=== PATIENT | male | born 1965 | race Caucasian/White ===

== ENCOUNTER → 2018-04-24 | Outpatient (CLI) | payer BC ==
[~2018-04-24] MED LIST: CLON.5 PO; LEVSOD50 PO; LISI20 PO; MULVITMIND PO; OMEP20ER PO; OXYACE7.5T PO; PROM25 PO; ROSU10TA PO; Testostero100 MG/1 M INJ; VERAPAMIL PO
== END | disposition home or self-care (01) ==
LOC: LAB SHORT 12:26 → LAB EV 12:26
DX: B00.9 Herpesviral infection, unspecified (principal)
CPT/HCPCS: 87529

== ENCOUNTER 2021-05-16 12:14 | Day surgery (SDC) | payer OTHER ==
[~2021-05-16] VITALS: Ht 177.8 cm; Wt 117.4 kg
[~2021-05-16 12:14] MED LIST changes: +AMLO10 PO; +DEPO-TESTO200 MG/1 M; +GLUCOPHAGE1000 M1 PO; +TAMS.4ER PO; +THYR60 PO; +VALA500 PO; +Verapamil ER300 MG PO
== END 2021-05-16 14:11 | disposition home or self-care (01) ==
LOC: ORSCSDS 12:14
PROVIDERS: Internal Medicine Gastroenterology
PROC: 0DBN8ZX Excision of Sigmoid Colon, Via Natural or Artificial Opening Endoscopic, Diagnostic (ICD-10-PCS; principal; 2021-05-16 13:30)
PROC: 0DBL8ZX Excision of Transverse Colon, Via Natural or Artificial Opening Endoscopic, Diagnostic (ICD-10-PCS; principal; 2021-05-16 13:30)
DX: Z12.11 Encounter for screening for malignant neoplasm of colon (principal); D12.3 Benign neoplasm of transverse colon; D12.5 Benign neoplasm of sigmoid colon; E11.9 Type 2 diabetes mellitus without complications; I10 Essential (primary) hypertension; K64.8 Other hemorrhoids; E03.9 Hypothyroidism, unspecified; E66.9 Obesity, unspecified; Z68.38 Body mass index [BMI] 38.0-38.9, adult; G47.30 Sleep apnea, unspecified; Z79.899 Other long term (current) drug therapy
CPT/HCPCS: 82947; 88305; J0330; J0461; J2405; J2704; J7120

== ENCOUNTER → 2023-07-13 | Outpatient (CLI) | payer BC | LOC: LAB 15:32 → LAB SHORT 15:32 | DX: L72.0 Epidermal cyst (principal) | CPT/HCPCS: 87070; 87205 ==

== ENCOUNTER 2023-10-24 16:37 | Inpatient (IN) | payer BC ==
[2023-10-24] VITALS (11 sets, daily range): BP systolic 122–146; BP diastolic 85–100
[~2023-10-24] VITALS: Ht 177.8 cm; Wt 120.5 kg
[~2023-10-24 16:37] MED LIST changes: +Prinivil10 MG PO
[2023-10-24 17:08] LABS: BASOPHILS ABSOLUTE AUTO 0.09 K/mm3 (0.00-0.23); BASOPHILS PERCENT AUTO 1 % (0-2); EOSINOPHILS ABSOLUTE AUTO 0.22 K/mm3 (0.00-0.68); EOSINOPHILS PERCENT AUTO 2 % (0-6); Hematocrit 54.5 % (37.0-53.0); Hemoglobin 18.4 g/dL (13.5-17.5); IMMATURE GRAN ABSOLUTE AUTO 0.03 K/mm3 (0.00-0.10); IMMATURE GRAN PERCENT AUTO 0 % (0-1); LYMPHOCYTES ABSOLUTE AUTO 2.29 K/mm3 (0.84-5.20); LYMPHOCYTES PERCENT AUTO 18 % (21-46); MONOCYTES ABSOLUTE AUTO 1.19 K/mm3 (0.16-1.47); MONOCYTES PERCENT AUTO 10 % (4-13); Mean Corpuscular HGB 30.7 pg (26.0-34.0); Mean Corpuscular HGB Conc 33.8 g/dL (31.5-36.5); Mean Corpuscular Volume 91 fL (80-100); NEUTROPHILS PERCENT AUTO 70 % (41-73); Platelet Count 231 K/mm3 (150-400); RDW Coefficient Variation 14.3 % (11.7-14.2); RDW Standard Deviation 48.1 fL (35.1-46.3); White Blood Cell Count 12.52 K/mm3 (4.00-11.30)
[2023-10-24 17:25] LABS: Calcium, Ionized (POC) 1.13 mmol/L (1.10-1.46); Chloride (POC) 101 mmol/L (98-108); Creatinine (POC) 1.3 mg/dL (0.8-1.3); Glucose (ISTAT POC) 203 mg/dL (70-99); Hemoglobin (POC) 18.7 g/dL (13.5-17.5); Potassium (POC) 3.9 mmol/L (3.5-5.5); Sodium (POC) 138 mmol/L (135-148); Total CO2 (POC) 26 mmol/L (21-32)
[2023-10-24 17:26] LABS: International Normalized Ratio 1.1; Prothrombin Time Results 11.5 Sec (9.7-11.5)
[2023-10-24 17:56] LABS: Albumin, Blood 3.8 g/dL (3.4-5.0); Bilirubin, Total 0.7 mg/dL (0.1-1.0); Bun/Creatinine Ratio 13.3 (12.0-20.0); Calcium, Blood 9.2 mg/dL (8.5-10.1); Creatinine, Blood 1.28 mg/dL (0.60-1.20); Globulin, Blood 3.7 g/dL (2.2-4.0); Potassium, Blood 4.1 mmol/L (3.5-5.5); Total Protein, Blood 7.5 g/dL (6.4-8.2)
[2023-10-24 18:14] LABS: CHOL/HDL RATIO 7.6; Cholesterol 204 mg/dL (50-200); HDL Cholesterol 27 mg/dL (>39); LDL/HDL RATIO 4.6; Low Density Lipoprotein Chol 125 mg/dL (0-110); Magnesium, Blood 1.9 mg/dL (1.6-2.4); Triglycerides 258 mg/dL (30-160); Very Low Density Lipoprot Chol 51 mg/dL (6-32)
[2023-10-24] MEDS ORDERED: OMEP20ER PO (18:26)
[2023-10-24] MEDS ORDERED: VITAMIN D350 MC3 PO (18:27)
[2023-10-24] MEDS ORDERED: MULTI-VITAMIN1 EAC2 PO (18:27)
--- NOTE | 2023-10-24 18:39 | NUR ---
PT ADMITTED TO ICU FROM CATH S/P CORONARY ANGIOGRAM WITH STENT PLACED TO DISTAL RCA. PT ARRIVED AWAKE AND ALERT. C/O DISCOMFORT 3/10 TO LEFT SHOULDER, THIS PAIN WAS PRESENT PRIOR TO SHIP ERECTOR. PT ALSO C/O MILD NAUSEA. LUNGS CLEAR. BP STABLE. SR IN 80'S W ST ELEVATION. FAMILY AT BEDSIDE, PT CALM AND VISITING W FAMILY IN NO APPARENT DISTRESS. TR BAND TO RIGHT ART W 10CC AIR TO BALLOON. CIRC CHECK WNL. HAND PINK AND WARM W GOOD CAP REFILL, ART PULSE PRESENT BELOW AND ABOVE TR BAND. PT DENIES C/O PAIN OR NUMBNESS TO HAND.
--- NOTE | 2023-10-24 20:08 | NUR ---
ASSUMPTION OF CARE ASSUMED CARE OF PATIENT AT 1900. PATIENT ALERT, ORIENTED x4, ANSWERING ALL QUESTIONS APPROPRIATELY. FAMILY AT THE BEDSIDE WITH PATIENT. ON ASSEMBLY MACHINE SET UP MECHANIC, SINUS RHYTHM 80s, REPORTING MILD CHEST AND LEFT SHOULDER PAIN BUT REPORTS IT IS MUCH BETTER THAN BEFORE ANGIOGRAM. TR BAND IN PLACE, DEFLATING PER ORDER. USING URINAL WITH ASSISTANCE. DENIES NEEDS AT THIS TIME, BED IN LOW POSITION, CALL LIGHT IN REACH.
[2023-10-25] VITALS (18 sets, daily range): BP systolic 106–139; BP diastolic 78–99
--- NOTE | 2023-10-25 | NUR ---
UPDATE TR BAND FULLY RECOVERED. OPSITE PLACED TO RIGHT RADIAL SITE. RIGHT RADIAL SITE IS FIRM TO TOUCH BUT NONTENDER, MINIMAL SWELLING, NO BRUISING OR SIGN OF HEMATOMA NOTED. ARM BOARD IN PLACE. PATIENT REPORTING MILD CHEST PRESSURE, BUT DECLINING MEDICATIONS FOR PAIN MANAGEMENT. USING URINAL INDEPENDENTLY WITH ADEQUATE OUTPUT. DENIES OTHER NEEDS AT THIS TIME.
[2023-10-25 03:30] LABS: BASOPHILS ABSOLUTE AUTO 0.04 K/mm3 (0.00-0.23); BASOPHILS PERCENT AUTO 0 % (0-2); EOSINOPHILS ABSOLUTE AUTO 0.03 K/mm3 (0.00-0.68); EOSINOPHILS PERCENT AUTO 0 % (0-6); Hematocrit 54.8 % (37.0-53.0); Hemoglobin 18.4 g/dL (13.5-17.5); IMMATURE GRAN ABSOLUTE AUTO 0.04 K/mm3 (0.00-0.10); IMMATURE GRAN PERCENT AUTO 0 % (0-1); LYMPHOCYTES ABSOLUTE AUTO 0.87 K/mm3 (0.84-5.20); LYMPHOCYTES PERCENT AUTO 7 % (21-46); MONOCYTES ABSOLUTE AUTO 1.05 K/mm3 (0.16-1.47); MONOCYTES PERCENT AUTO 8 % (4-13); Mean Corpuscular HGB 31.1 pg (26.0-34.0); Mean Corpuscular HGB Conc 33.6 g/dL (31.5-36.5); Mean Corpuscular Volume 93 fL (80-100); Mean Platelet Volume 9.9 fL (9.1-12.4); NEUTROPHILS PERCENT AUTO 85 % (41-73); Platelet Count 228 K/mm3 (150-400); RDW Coefficient Variation 14.5 % (11.7-14.2); RDW Standard Deviation 50.2 fL (35.1-46.3); Red Blood Cell Count 5.91 M/mm3 (4.30-5.90); White Blood Cell Count 13.33 K/mm3 (4.00-11.30)
[2023-10-25 04:03] LABS: Albumin, Blood 3.6 g/dL (3.4-5.0); Albumin/Globulin Ratio 0.9 (0.8-1.8); Bilirubin, Total 0.7 mg/dL (0.1-1.0); Bun/Creatinine Ratio 13.2 (12.0-20.0); Calcium, Blood 8.9 mg/dL (8.5-10.1); Creatinine, Blood 1.21 mg/dL (0.60-1.20); Globulin, Blood 3.9 g/dL (2.2-4.0); Magnesium, Blood 2.2 mg/dL (1.6-2.4); Potassium, Blood 5.1 mmol/L (3.5-5.5); Thyroid Stimulating Hormone 0.683 uIU/mL (0.360-4.800); Total Protein, Blood 7.5 g/dL (6.4-8.2)
--- NOTE | 2023-10-25 06:20 | NUR ---
SHIFT SUMMARY PATIENT ALERT AND ORIENTED x4. SINUS RHYTHM WITH ST ELEVATION ON MONITOR, BP STABLE. PATIENT REPORTING MILD CHEST PAIN DURING THE NIGHT, MEDICATED x1. TR BAND OFF SINCE 0000. RIGHT RADIAL SITE COVERED WITH OPSITE TEGADERM, MILD SWELLING NOTED, NO SIGN OF HEMATOMA/BRUISING, SITE CONTINUES TO BE NONTENDER, CAP REFILL <3 SECONDS. PATIENT ON RA DURING THE NIGHT WITH SPO2 >95%. PATIENT USING URINAL WITH ADEQUATE OUTPUT DURING THE NIGHT. NO OTHER CHANGES, WILL REPORT TO DAY SHIFT RN.
--- NOTE | 2023-10-25 07:00 | NUR ---
ASSUMPTION OF CARE BEDSIDE REPORT RECEIVED AND R RADIAL SITE VISUALIZED. ARMBOARD IN PLACE, CLEAR TEGADERM C/D/I. NO SWELLING OR DISCOLORATION. PT IS ALERT AND ORIENTED. HE IS ON RA WITH SPO2 >95%. SINUS ON MONITOR WITH OCCASIONAL PVCS, RATE IN 50S-60S. SBP 130S. HE REPORTS CHEST DISCOMFORT WITH DEEP BREATHING BUT OTHERWISE DENIES SYMPTOMS. AT BEDSIDE. MANAGER INSPECTION AT BEDSIDE.
--- NOTE | 2023-10-25 08:30 | NUR ---
UPDATE HOSPITALIST AND PROFESSOR OF ENGINEERING ROUNDED. PLAN FOR PT TO DOWNGRADE TO PCU STATUS AND MONITOR UNTIL TOMORROW.
--- NOTE | 2023-10-25 09:45 | NUR ---
TRANSFER PT TRANSFERRED TO PCU 14 AT THIS TIME. PT TRANSFERRED SELF TO WHEELCHAIR, THEN TO BED IN NEW ROOM. PT DENIES CP. VSS AT THIS TIME. RECEIVING RN AT BEDSIDE AND VISUALIZED R RADIAL ACCESS SITE.
--- NOTE | 2023-10-25 13:54 | NUR ---
CARE ASSUMPTION PT ARRIVED TO PCU FROM ICU VIA WHEELCHAIR AT APPROX 0930. PT AMBULATED INDEPENDENTLY FROM WHEELCHAIR TO PCU BED. PT ACCOMPANIED BY . PT A&OX4, VSS. SP02>90% ON RA. TELEMETRY SHOWS SINUS KONRAD/NSR, HR 50'S-60'S PT HAS R RADIAL SITE, RECOVERED, ARM BOARD IN PLACE. NO SIGNS OF BLEEDING, BRUISING, HEMATOMA. PT DENIED CP UPON CARE ASSUMPTION. APPROX 1300, PT C/O OF MILD CHEST PAIN, STATES SHARP WHEN BREATHING. VSS. CALL PLACED TO MD LINARES. W/ ORDERS TO MONITOR. PT NOTIFIED TO CALL IF CP WORSENS. PT USING URINAL TO VOID. LOTS OF FAMILY IN ROOM. PT ORIENTED TO ROOM, CALL LIGHT. CALL LIGHT IN REACH.
--- NOTE | 2023-10-25 18:05 | NUR ---
shift summary no acute changes since care assumption. Vss. Pt oriented, independent in room. at bedside. R radial c/d/i, arm board in place. Pt resting in room, eating dinner, watching tv. Call light in reach.
[2023-10-26 01:19] VITALS: BP 123/87
[2023-10-26 05:35] VITALS: BP 123/92
--- NOTE | 2023-10-26 06:40 | NUR ---
SHIFT SUMMARY PATIENT ALERT AND ORIENTED x4, ABLE TO MAKE NEEDS KNOWN TO STAFF. AT BEDSIDE DURING THE NIGHT. BP STABLE, REPORTED MINIMAL CHEST PAIN. RIGHT RADIAL SITE REMAINS UNCHANGED, OPSITE C/D/I, ARMBOARD IN PLACE. EDUCATED ON IMPORTANCE NOT USING RIGHT HAND. PATIENT AMBULATING IN ROOM INDEPENDENTLY. NO OTHER CHANGES DURING THE NIGHT, WILL REPORT TO DAY SHIFT RN.
[2023-10-26 07:41] VITALS: BP 117/92
[2023-10-26] MEDS ORDERED: ASPI81CH PO (10:28)
[2023-10-26] MEDS ORDERED: CLOP75 PO (10:28)
[2023-10-26] MEDS ORDERED: ATOR40TA PO (10:28)
[2023-10-26] MEDS ORDERED: METO25 PO (10:29)
--- NOTE | 2023-10-26 11:04 | NUR ---
DISCHARGE SUMMARY PT A&OX4. VSS. PT DENIES PAIN. R RADIAL SITE W/ CLEAR TEGADERM, C/D/I. NO SIGNS OF BLEEDING, HEMATOMA, BRUISING. IV REMOVED. TELEMETRY REMOVED. DISCHARGE PAPERWORK REVIEWED WITH PT AND . MEDICATIONS FAXED TO PREFERRED PHARMACY. PT DRESSED, AMBULATED INDEPENDENTLY OUT TO CARE. STENT CARD LEFT IN ROOM. CALL PLACED TO PT TO NOTIFY OF PCU MAILING STENT CARD TO PT.
[2023-10-26] MEDS ORDERED: AMLO10 PO (14:24)
[2023-10-27 20:41] LABS: ERYTHROPOIETIN 7 mU/mL (4-27)
== END 2023-10-26 10:51 | disposition home or self-care (01) | DRG 322 ==
LOC: ER 16:37 → ICUE 17:34 → PCU 10-25 09:45
PROVIDERS: Student in an Organized Health Care Education/Training Program; ADMIT Internal Medicine Interventional Cardiology
PROC: 027034Z Dilation of Coronary Artery, One Artery with Drug-eluting Intraluminal Device, Percutaneous Approach (ICD-10-PCS; principal; 2023-10-24)
PROC: B2111ZZ Fluoroscopy of Multiple Coronary Arteries using Low Osmolar Contrast (ICD-10-PCS; 2023-10-24)
DX: I21.19 ST elevation (STEMI) myocardial infarction involving other coronary artery of inferior wall (principal); I11.9 Hypertensive heart disease without heart failure; E66.9 Obesity, unspecified; E11.9 Type 2 diabetes mellitus without complications; I25.10 Atherosclerotic heart disease of native coronary artery without angina pectoris; E29.1 Testicular hypofunction; E03.9 Hypothyroidism, unspecified; D75.1 Secondary polycythemia; Z88.5 Allergy status to narcotic agent; Z79.84 Long term (current) use of oral hypoglycemic drugs; Z79.890 Hormone replacement therapy; Z68.28 Body mass index [BMI] 28.0-28.9, adult
CPT/HCPCS: 36415; 76937; 80047; 80053; 80061; 82947; 83036; 83735; 84443; 84484; 85014; 85025; 85610; 85730; 86850; 86900; 86901; 93005; 93010; 93306; 93454; 96372; 96374; 96375; 99152; 99153; 99285-25; A9270; C1725; C1769; C1874; C1887; C1894; C9600; C9606; G0378; J0461; J1644; J1650; J2250; J2371; J2405; J3010; J3246; J7030; J7050; Q9967

== ENCOUNTER 2023-10-29 10:44 | Emergency (ER) | payer BC ==
[~2023-10-29] VITALS: Ht 177.8 cm; Wt 120.2 kg
[~2023-10-29 10:44] MED LIST changes: +ASPI81CH PO; +ATOR40TA PO; +CLOP75 PO; +METO25 PO; +MULTI-VITAMIN1 EAC2 PO; +VITAMIN D350 MC3 PO
[2023-10-29 11:31] LABS: BASOPHILS ABSOLUTE AUTO 0.06 K/mm3 (0.00-0.23); BASOPHILS PERCENT AUTO 1 % (0-2); EOSINOPHILS ABSOLUTE AUTO 0.18 K/mm3 (0.00-0.68); EOSINOPHILS PERCENT AUTO 2 % (0-6); Hematocrit 51.1 % (37.0-53.0); Hemoglobin 17.2 g/dL (13.5-17.5); IMMATURE GRAN ABSOLUTE AUTO 0.03 K/mm3 (0.00-0.10); IMMATURE GRAN PERCENT AUTO 0 % (0-1); LYMPHOCYTES ABSOLUTE AUTO 1.21 K/mm3 (0.84-5.20); LYMPHOCYTES PERCENT AUTO 12 % (21-46); MONOCYTES ABSOLUTE AUTO 1.19 K/mm3 (0.16-1.47); MONOCYTES PERCENT AUTO 11 % (4-13); Mean Corpuscular HGB 30.9 pg (26.0-34.0); Mean Corpuscular HGB Conc 33.7 g/dL (31.5-36.5); Mean Corpuscular Volume 92 fL (80-100); Mean Platelet Volume 10.3 fL (9.1-12.4); NEUTROPHILS ABSOLUTE AUTO 7.74 K/mm3 (1.96-9.15); NEUTROPHILS PERCENT AUTO 74 % (41-73); Platelet Count 220 K/mm3 (150-400); RDW Coefficient Variation 13.9 % (11.7-14.2); RDW Standard Deviation 47.7 fL (35.1-46.3); Red Blood Cell Count 5.56 M/mm3 (4.30-5.90); White Blood Cell Count 10.41 K/mm3 (4.00-11.30)
[2023-10-29 11:50] LABS: Albumin, Blood 3.1 g/dL (3.4-5.0); Albumin/Globulin Ratio 0.7 (0.8-1.8); Bilirubin, Total 0.9 mg/dL (0.1-1.0); Bun/Creatinine Ratio 14.8 (12.0-20.0); Creatinine, Blood 1.22 mg/dL (0.60-1.20); Globulin, Blood 4.4 g/dL (2.2-4.0); Potassium, Blood 4.2 mmol/L (3.5-5.5); Total Protein, Blood 7.5 g/dL (6.4-8.2)
[2023-10-29 13:24] LABS: Source, Urine Clean Catch
[2023-10-29] MEDS ORDERED: TERB250 PO (13:24)
[2023-10-29] MEDS ORDERED: NIVA THYROID60 MG PO (13:25)
[2023-10-29] MEDS ORDERED: TAMSULOSIN HCL0.4 M1 PO (13:26)
[2023-10-29 13:30] LABS: Appearance, Urine Clear (Clear); Bilirubin, Urine Neg (Neg); Blood, Urine Neg (Neg); Color, Urine Yellow (P-Yellow); Glucose Qualitative, Urine Neg (Neg); Ketones, Urine Neg (Neg); Leukocyte Esterase, Urine Neg (Neg); Nitrite, Urine Neg (Neg); Protein, Urine Neg (Neg); Urobilinogen, Urine 1+ (Normal); pH, Urine 6.5 (5.0-8.0)
[2023-10-29 13:49] VITALS: BP 120/72
== END 2023-10-29 13:53 | disposition home or self-care (01) ==
LOC: ER 10:44
PROVIDERS: Physician Assistant
DX: R10.32 Left lower quadrant pain (principal); I25.2 Old myocardial infarction; Z95.9 Presence of cardiac and vascular implant and graft, unspecified
CPT/HCPCS: 74177; 80053; 81003; 85025; 99284-25; Q9967

== ENCOUNTER → 2023-11-26 | Outpatient (CLI) | payer BC ==
[~2023-11-26] MED LIST changes: +NIVA THYROID60 MG PO; +TAMSULOSIN HCL0.4 M1 PO; +TERB250 PO
== END ==
LOC: LAB SHORT 15:37 → LAB 15:37
DX: B35.1 Tinea unguium (principal); T81.31XA Disruption of external operation (surgical) wound, not elsewhere classified, initial encounter
CPT/HCPCS: 87070; 87077; 87186; 87205